=== PATIENT | female | born 1975 | race American Indian/Alaskan Native ===

== ENCOUNTER 2017-05-25 11:45 | Emergency (ER) | payer OTHER ==
[2017-05-25 11:59] VITALS: BP 126/79
[2017-05-25] MEDS ORDERED: BOOSTRIX IM ONE (13:18)
[2017-05-25] MEDS ORDERED: TORADOL IM ONE (13:19)
[2017-05-25] MEDS ORDERED: XYLOCAINE 1% 20 mL INFILTRATI ONE (13:20)
[2017-05-25] MEDS ORDERED: NACL 0.9% 500 ML IR ONE (13:48)
[2017-05-25] MEDS ORDERED: NACL 0.9% IR ONE (13:51)
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
== END 2017-05-25 14:36 | disposition home or self-care (01) ==
LOC: ED 11:45
DX: S81.012A Laceration without foreign body, left knee, initial encounter (principal); M25.512 Pain in left shoulder; M54.5 Low back pain; F17.200 Nicotine dependence, unspecified, uncomplicated; Z88.0 Allergy status to penicillin; Z88.2 Allergy status to sulfonamides; Z88.8 Allergy status to other drugs, medicaments and biological substances; V49.49XA Driver injured in collision with other motor vehicles in traffic accident, initial encounter; W22.11XA Striking against or struck by driver side automobile airbag, initial encounter; Y93.89 Activity, other specified; Y99.9 Unspecified external cause status; Y92.410 Unspecified street and highway as the place of occurrence of the external cause
CPT/HCPCS: 12001; 90471; 90715; 96372; 99283; J1885